=== PATIENT | female | born 1955 | race Caucasian/White ===

== ENCOUNTER → 2018-06-24 | Outpatient (CLI) | payer OTHER ==
[~2018-06-24] MED LIST: ESTR0.5T PO
[2018-06-24 11:15] LABS: MICROSCOPIC AUTO
[2018-06-24 11:16] LABS: BASOPHILS # (AUTO) 0.03 x10^3/uL (0-0.1); BASOPHILS % (AUTO) 1 % (0-1); EOSINOPHILS # (AUTO) 0.21 x10^3/uL (0-0.4); EOSINOPHILS % (AUTO) 3 % (1-7); INTERNATIONAL NORMALIZED RATIO 1.09 (0.93-1.1); LYMPHOCYTES # (AUTO) 2.29 x10^3/uL (1-3.4); LYMPHOCYTES % (AUTO) 37 % (22-44); MD NO; MEAN CORPUSCULAR HEMOGLOBIN 33.4 pg (27.0-34.8); MEAN CORPUSCULAR HGB CONC 34.4 g/dL (32.4-35.8); MEAN CORPUSCULAR VOLUME 96.9 fL (80-100); MEAN PLATELET VOLUME 10.1 fL (7.4-10.4); MONOCYTES # (AUTO) 0.39 x10^3/uL (0.2-0.8); MONOCYTES % (AUTO) 6 % (2-9); NEUTROPHILS % (AUTO) 53 % (42-75); PLATELET COUNT 313 x10^3/uL (130-400); PROTHROMBIN TIME 11.4 Seconds (9.6-11.5); RED BLOOD COUNT 4.53 x10^6/uL (3.82-5.3); RED CELL DISTRIBUTION WIDTH 12.5 % (9.6-15.2)
[2018-06-24 11:18] LABS: ALANINE AMINOTRANSFERASE 16 U/L (12-78); ALBUMIN 4.1 g/dL (3.4-5.0); ANION GAP 4 mmol/L (5-15); CALCIUM 9.2 mg/dL (8.5-10.1); CHLORIDE 110 mmol/L (98-107)
[2018-06-24 11:19] LABS: CULTURE INDICATED? YES
[2018-06-24 11:21] LABS: ALKALINE PHOSPHATASE 46 U/L (45-117); BILIRUBIN,TOTAL 0.5 mg/dL (0.2-1.0); CREATININE 0.85 mg/dL (0.55-1.02); TOTAL PROTEIN 7.5 g/dL (6.4-8.2)
== END | disposition home or self-care (01) ==
LOC: STAR 10:00
PROVIDERS: ATTEND Neurological Surgery
DX: Z01.818 Encounter for other preprocedural examination (principal); M48.02 Spinal stenosis, cervical region; M54.12 Radiculopathy, cervical region
CPT/HCPCS: 36415; 71046; 80053; 81001; 85025; 85610; 85730; 87086; 93005

== ENCOUNTER 2018-06-30 06:37 | Inpatient (IN) | payer OTHER ==
[2018-06-24 10:37] VITALS: BP 135/87
[~2018-06-30] VITALS: Ht 157.5 cm; Wt 63.7 kg
[~2018-06-30 06:37] MED LIST changes: +BACITRACIN 50,000 UNIT ONE; +BUPIVACAINE/PF-EPI 0.5% 1:200K ONE; +THROMBIN 5,000 UNIT VIAL TP ONE
[2018-06-30] MEDS ORDERED: LACTATED RINGERS 1,000 ML IV SCH (07:02)
[2018-06-30] MEDS ORDERED: ACETAMINOPHEN 500 MG TABLET PO ONE (07:30)
[2018-06-30] MEDS ORDERED: GABAPENTIN 300 MG CAPSULE PO ONE (07:30)
[2018-06-30] MEDS ORDERED: FENTANYL PF 250 MCG/5ML ONE (07:46)
[2018-06-30] MEDS ORDERED: MIDAZOLAM 1 MG/ML, 2ML ONE ×2 (07:46→11:25)
[2018-06-30] MEDS ORDERED: HYDROmorphone 1 MG/ML, 1ML AMP ONE (10:51)
[2018-06-30] MEDS: HYDROmorphone 2 MG/ML, 1ML IVPush PRN ×2 (10:51→11:01)
[2018-06-30] MEDS ORDERED: OXYcodone 5 MG/5 ML ORAL.SOL UDC ONE (10:52)
[2018-06-30] MEDS ORDERED: FENTANYL PF 100 MCG/2ML ONE (10:52)
[2018-06-30] MEDS ORDERED: PROMETHAZINE 25 MG/ML, 1ML IV PRN (11:00)
[2018-06-30] MEDS ORDERED: ONDANSETRON 2MG/ML, 2ML IV PRN ×2 (11:00→12:30)
[2018-06-30] MEDS ORDERED: hydrALAzine 20 MG/ML, 1ML IV PRN (11:00)
[2018-06-30] MEDS: FENTANYL PF 100 MCG/2ML IV PRN ×2 (11:00→11:13)
[2018-06-30] MEDS ORDERED: OXYcodone 5 MG/5 ML ORAL.SOL UDC PO PRN (11:00)
[2018-06-30] MEDS ORDERED: MEPERIDINE/PF 25MG/0.5ML IVPush PRN (11:00)
[2018-06-30] MEDS ORDERED: KETOROLAC 30 MG/1 ML IV PRN (11:00)
[2018-06-30] MEDS ORDERED: CYCLOBENZAPRINE 10 MG TABLET ONE (11:09)
[2018-06-30] MEDS ORDERED: KETOROLAC 30 MG/1 ML ONE (11:09)
[2018-06-30] MEDS: MIDAZOLAM 1 MG/ML, 2ML IV PRN ×2 (11:27→11:44)
[2018-06-30] MEDS ORDERED: CYCLOBENZAPRINE 10 MG TABLET PO ONE (11:30)
[2018-06-30] MEDS ORDERED: morphine SULFATE 10 MG/ML, 1ML IV PRN (12:30)
[2018-06-30] MEDS ORDERED: BISACODYL 10 MG SUPP PR PRN (12:30)
[2018-06-30] MEDS ORDERED: CYCLOBENZAPRINE 10 MG TABLET PO PRN (12:30)
[2018-06-30] MEDS ORDERED: DIPHENHYDRAMINE 50 MG CAPSULE PO PRN (12:30)
[2018-06-30] MEDS ORDERED: MAGNESIUM HYDROXIDE 8%, 30ML UDC PO PRN (12:30)
[2018-06-30] MEDS ORDERED: PROMETHAZINE 25 MG/ML, 1ML IM PRN (12:30)
[2018-06-30] MEDS: D5%-0.9% NACL+KCL 20MEQ 1,000 ML IV SCH ×2 (13:50→22:30)
[2018-06-30] MEDS: OXYcodone/APAP 5/325MG TABLET PO PRN (14:53)
[2018-06-30] MEDS ORDERED: ONDANSETRON 2MG/ML, 2ML ONE (15:40)
[2018-06-30] MEDS ORDERED: DEXAMETHASONE 4 MG/ML, 5ML ONE (15:40)
[2018-06-30] MEDS ORDERED: SUCCINYLCHOLINE 20 MG/ML, 10ML ONE (15:40)
[2018-06-30] MEDS ORDERED: CEFAZOLIN 1,000 MG ONE (15:40)
[2018-06-30] MEDS ORDERED: ROCURONIUM 10MG/ML,5ML ONE (15:40)
[2018-06-30] MEDS ORDERED: PROPOFOL 10 MG/ML, 50ML ONE (15:40)
[2018-06-30] MEDS: CEFAZOLIN PMX 1GM/50ML 50 ML IVPB SCH (17:14)
[2018-06-30 19:44] VITALS: BP 105/67
[2018-06-30] MEDS: HYDROcodone/APAP 5/325 TABLET PO PRN (21:30)
[2018-07-01 00:05] VITALS: BP 101/63
[2018-07-01] MEDS: CEFAZOLIN PMX 1GM/50ML 50 ML IVPB SCH (01:08)
[2018-07-01] MEDS: HYDROcodone/APAP 5/325 TABLET PO PRN (03:00)
[2018-07-01 03:50] VITALS: BP 112/69
[2018-07-01] MEDS: D5%-0.9% NACL+KCL 20MEQ 1,000 ML IV SCH (07:15)
[2018-07-01] MEDS: OXYcodone/APAP 5/325MG TABLET PO PRN (07:19)
[2018-07-01 08:37] VITALS: BP 113/66
[2018-07-01] MEDS ORDERED: METH4TAB2 PO (08:54)
[2018-07-01] MEDS ORDERED: OXYC-302 PO (08:54)
[2018-07-01] MEDS ORDERED: CYCL5TAB PO (08:54)
[2018-07-01] MEDS ORDERED: SENNA/DOCUSATE TABLET PO SCH (09:00)
== END 2018-07-01 09:37 | disposition home or self-care (01) | DRG 472 ==
LOC: ORIP 06:37 → 4NOR 12:04 → DCLOUNGE 07-01 09:21
PROVIDERS: ADMIT Neurological Surgery; ATTEND Neurological Surgery
PROC: 01N10ZZ Release Cervical Nerve, Open Approach (ICD-10-PCS; 2018-06-30)
PROC: 0RB30ZZ Excision of Cervical Vertebral Disc, Open Approach (ICD-10-PCS; 2018-06-30)
PROC: 4A11X4G Monitoring of Peripheral Nervous Electrical Activity, Intraoperative, External Approach (ICD-10-PCS; 2018-06-30)
PROC: 0RG20A0 Fusion of 2 or more Cervical Vertebral Joints with Interbody Fusion Device, Anterior Approach, Anterior Column, Open Approach (ICD-10-PCS; principal; 2018-06-30 09:00)
DX: M50.121 Cervical disc disorder at C4-C5 level with radiculopathy (principal); M50.021 Cervical disc disorder at C4-C5 level with myelopathy; M48.02 Spinal stenosis, cervical region; M40.292 Other kyphosis, cervical region; Z83.6 Family history of other diseases of the respiratory system; Z82.49 Family history of ischemic heart disease and other diseases of the circulatory system; Z82.61 Family history of arthritis
CPT/HCPCS: 72040; C1713; G0378; J0690; J1100; J1170; J1885; J2250; J2405; J2704; J3010; C1762; J0330; J3480; J7120